=== PATIENT | female | born 1970 | race Caucasian/White ===

== ENCOUNTER → 2017-05-20 | Outpatient (CLI) | payer MEDICARE, MEDICAID ==
[~2017-05-20] MED LIST: AYGESTIN5 MG PO; BACTRIM DS 8001 TA1 PO; BACTROBAN2% TP; CITALOPRAM40 MG PO; FLONASE 50 MCG16 GM; HYDROXYZINE HCL25 MG PO; IBUPROFEN600 MG; NAPROXEN500 MG PO; PROMETHAZINE25 M1 PO; SIMVASTATIN40 MG PO; SYNTHROID0.15 M1 PO; TYLENOL 8 HOUR650 MG PO; ZANTAC150 MG PO
--- NOTE | 2017-05-27 11:07 | RADIOLOGY REPORT PS360 ---
DIG MAMM-SCREEN JACKI W/CAD CAD Screening COMPARISON: None, this is baseline INDICATION: There is no personal or family history of breast cancer TECHNIQUE: Standard CC and MLO images were obtained. R2 CAD reviewed. FINDINGS: The breasts are largely composed primarily of fat. Minimal scattered fibroglandular densities are seen in each breast. There are scattered benign-appearing microcalcifications in each breast. There is no suspicious lesion and there are no suspicious microcalcifications. IMPRESSION: Fatty type breast parenchyma with no suspicious lesion seen recommend yearly follow-up BI-RADS CATEGORY: 2_Benign RECOMMENDED FOLLOWUP: 12M 12 MONTH FOLLOW-UP (A letter has been sent to the patient regarding results of the study.)
== END ==
LOC: RAD 15:22
DX: Z12.31 Encounter for screening mammogram for malignant neoplasm of breast (principal)
CPT/HCPCS: G0202